=== PATIENT | female | born 1930 | race Caucasian/White ===

== ENCOUNTER 2020-12-17 09:12 | Outpatient (CLI) | payer MEDICARE, BC ==
[~2020-12-17] VITALS: Ht 165.1 cm; Wt 47.6 kg
[2020-12-17] MEDS ORDERED: regadenoson 0.4mg/5ml syringe IV ONE (10:05)
[2020-12-17] MEDS ORDERED: aminophylline 250mg/10ml inj. IV PRN (10:05)
[2020-12-17] MEDS ORDERED: nitroGLYCERIN 0.4mg SUBLingual tab SL PRN (10:05)
[2020-12-17] MEDS ORDERED: normal saline 500ml IV soln 500 ML IV ONE (10:05)
[2020-12-17 10:37] VITALS: BP 162/68
[2020-12-17 10:52] VITALS: BP 166/74
[2020-12-17 10:53] VITALS: BP 136/62
[2020-12-17 10:54] VITALS: BP 152/67
[2020-12-17 10:55] VITALS: BP 156/73
[2020-12-17 10:56] VITALS: BP 161/70
== END 2020-12-17 23:59 | disposition home or self-care (01) ==
LOC: RAD 09:12
PROVIDERS: ATTEND Internal Medicine Cardiovascular Disease
DX: Z01.810 Encounter for preprocedural cardiovascular examination (principal)
CPT/HCPCS: 78452; 93017; A9500; J2785; J7040